=== PATIENT | male | born 2000 | race Caucasian/White ===

== ENCOUNTER 2019-05-18 22:27 | Emergency (ER) | payer MEDICAID ==
[~2019-05-18] VITALS: Ht 177.8 cm; Wt 68.9 kg
[2019-05-18 22:42] VITALS: BP_SYST 137
--- NOTE | 2019-05-18 22:48 | NUR ---
Patient to ER bed 80 for evaluation. Side rails up. Report given to Brad SINGH.
--- NOTE | 2019-05-18 22:48 | NUR ---
Pt c/o pain to digit 5 of RHA and states that he is unable to fully open hand or move digits 4 and 5. Pt states that he became upset and struck a wall with his RHA. No obvious deformity noted other than mild swelling to lateral digit 5 RHA.
--- NOTE | 2019-05-18 22:51 | NUR ---
ER at bedside examining patient.
[2019-05-18] MEDS ORDERED: IBUPROFEN 600 MG TABLET PO ONE (23:00)
--- NOTE | 2019-05-19 | NUR ---
Ulnar/Gutter splint applied to RUE and supported with sling. Pt tolerated well. Cap refil <3 sec to nail beds of all fingers of RHA.
[2019-05-19 00:30] VITALS: BP_SYST 132
--- NOTE | 2019-05-19 00:30 | NUR ---
Patient given written and verbal discharge instructions and verbalizes understanding. ER MD discussed with patient the results and treatment provided. Patient in stable condition. ID arm band removed. Rx of Naproxyn given. Patient educated on pain management and to follow up with PMD. Pain Scale 3/10. Opportunity for questions provided and answered. Medication side effect fact sheet provided.
== END 2019-05-19 00:30 | disposition home or self-care (01) ==
LOC: SED 22:27
DX: S62.316A Displaced fracture of base of fifth metacarpal bone, right hand, initial encounter for closed fracture (principal); W22.01XA Walked into wall, initial encounter; Y93.89 Activity, other specified; Y92.89 Other specified places as the place of occurrence of the external cause; Y99.8 Other external cause status
CPT/HCPCS: 99283